=== PATIENT | female | born 1940 | race Caucasian/White ===

== ENCOUNTER 2016-12-05 05:18 | Inpatient (IN) | payer OTHER, MEDICARE ==
[~2016-12-05] VITALS: Ht 167.6 cm; Wt 76.7 kg
[~2016-12-05 05:18] MED LIST: ALIGN4 M1; AMLODIPINE BESY10 M1 PO; ASPIRIN EC81 M1 PO; BACTROBAN15 GM TOP; COZAAR100 M1 PO; METFORMIN HCL1000 M1 PO; SIMVASTATIN20 M2 PO; SOTALOL80 M1 PO; TRIAMTERENE-HC1 EAC3 PO; ULTRAM50 M1 PO; WARFARIN SODIUM5 M1 PO; XANAX0.5 M1 PO
--- NOTE | 2016-12-05 12:12 | Admission Core Measures ---
Admission Lab Results I reviewed the following labs: Laboratory Tests 12/05 730 Coagulation PT (9.4 - 12.5 SEC) 12.0 INR (0.90 - 1.19) 1.14 Admission Meds I reviewed the following Meds: Current Medications Sig/Ayesha Start time Last Medication Dose Stop Time Status Admin Acetaminophen 975 MG ONCE 12/05 0000 NR (Tylenol) 12/05 2358 Alprazolam 0.5 MG TID PRN 12/05 0815 AC (Xanax) 12/12 0914 Amlodipine Besylate 10 MG DAILY 12/05 1000 AC (Norvasc) Atorvastatin Calcium 10 MG 1700 12/05 1700 AC (Lipitor) Cefazolin Sodium 2,000 MG ONCE 12/05 0000 CAN (Kefzol-Ancef Inj) 12/05 235 Lactobacillus 1 CAP DAILY 12/05 1000 AC Acidophilus (Probiotic) Losartan Potassium 100 MG DAILY 12/05 1000 AC (Cozaar) Oxycodone HCl 10 MG ONCE 12/05 0000 AC (Roxicodone) 12/05 2358 Ropivacaine 500 ML ONCE ONE 12/05 0830 AC (NAROPIN) 12/07 1029 ON-Q Ball 1 BAG Sotalol HCl 160 MG BID 12/05 1000 AC (Betapace) Triamterene/HCTZ 1 CAP DAILY 12/05 1000 AC (Dyazide) Vancomycin HCl 1,000 MG ONCE 12/05 0000 NR Sodium Chloride 250 ML 12/05 2358 (Normal Saline 0.9%) Acute Coronary Syndrome Inclusion Criteria ACS Diagnosis No Inpatient Core Measures LDL Reminder: If No, please order W/I first 24hr of stay Congestive Heart Failure Inclusion Criteria CHF Diagnosis No Cerebrovascular accident Inclusion Criteria CVA/TIA Diagnosis No Inpatient Core Measures Bedside Swallow Eval Reminder: If BSE failed, place ST order Antithrombotic Reminder: Order Antithrombotic Medication by end of day 2 Antithrombotic Reminder: Document Reason Antithrombotic Not ordered by end of day 2 AFIB/Flutter Reminder: If Present, add to problem list AFIB/Flutter Reminder: Order Anticoag Medication for pts with AFIB/Flutter Atherosclerosis Reminder: If Present, add to problem list LDL Reminder: If No, please order W/I first 24hr of stay PT Order Reminder: If No, please order Venous thromboembolism Inpatient Core Measures VTE Risk Factors: Age > 40, Surgery No [facility] [place] VTE prophylaxis d/t No contraindications No VTE Pharm Prophylaxis d/t No contraindications Inclusion Criteria - Per Current guidelines, there needs to be overlap - treatment for the first 5 days of Warfarin therapy. - Parenteral Anticoagulation (IV or SC) needs to be - given along with Warfarin therapy. VTE Diagnosis No VTE Type NONE VTE Confirmed by (Test) NONE Problem List As ranked by this Provider includes Assessment & Plan 1. Unilateral primary osteoarthritis, left knee HOME MEDS Home Med List Alprazolam (Xanax) 0.5 MG TABLET 1 TAB PO TIDPRN ANXIETY (Reported) Amlodipine Besylate 10 MG TABLET 1 TAB PO DAILY HTN (Reported) Aspirin (Ecotrin*) 81 MG TABLET.DR 1 TAB PO DAILY PROPHO (Reported) Losartan (Cozaar) 100 MG TABLET 1 TAB PO DAILY HTN (Reported) Metformin HCl 1,000 MG TABLET 1 TAB PO BID DM II (Reported) Mupirocin Calcium (Bactroban) 2 % CREAM..G. 1 TERRI TOP BID PRE OP HX MRSA ( Reported) Simvastatin (Simvastatin*) 20 MG TABLET 1 TAB PO QPM CHOLESTEROL (Reported) Sotalol HCl (Sotalol) 80 MG TABLET 2 TAB PO BID A FIB (Reported) Triamterene/Hydrochlorothiazid (Triamterene-Hctz 37.5-25 MG Cp) 37.5 MG-25 MG CAPSULE 1 CAP PO DAILY HTN (Reported) Warfarin Sodium 5 MG TABLET 1 TAB PO DAILY A FIB (Reported)
[2016-12-05] MEDS ORDERED: MS CONTIN15 M2 PO (12:15)
[2016-12-05] MEDS ORDERED: PRILOSEC OTC20 M1 PO (12:15)
[2016-12-05] MEDS ORDERED: COLACE100 M1 PO (12:15)
[2016-12-05] MEDS ORDERED: MIRALAX17 G1 PO (12:15)
[2016-12-05] MEDS ORDERED: DILAUDID2 M1 PO (12:15)
[2016-12-05] MEDS ORDERED: COUMADIN5 M2 PO (12:15)
[2016-12-05] MEDS ORDERED: ASPIRIN EC325 M2 PO (12:15)
--- NOTE | 2016-12-05 12:20 | Patient Discharge Instructions ---
Discharge Instructions General Discharge Information You were seen/treated for: LEFT KNEE PAIN You had these procedures: LEFT TOTAL KNEE REPLACEMENT Watch for these problems: INCREASING PAIN DESPITE THE USE OF PAIN MEDICATION, REDNESS, WARMTH, SWELLING. DRAINAGE OF ANY TYPE FROM INCISION. INABILITY TO BEAR WEIGHT ON LEFT LEG. FEVER >101.5 DEGREES. Do not soak the wound: Yes No bath, but you may shower: Yes Special Instructions: WOUND CARE: KEEP WOUND CLEAN AND DRY. YOUR HOME CARE NURSE WILL CHANGE YOUR DRESSING ON THE SECOND DAY AFTER YOUR SURGERY. DAILY DRY DRESSING CHANGES RECOMMENDED AFTER THAT. NO OINTMENTS OF ANY TYPE ON INCISION. BLOOD THINNER: IN ADDITION TO DAILY COUMADIN, YOU WILL BE TAKING 325 MG OF ASPIRIN TWICE DAILY. THIS IS IMPORTANT IT HELPS PROTECT YOU FROM DEVELOPING A BLOOD CLOT WHILE WAITING FOR YOUR COUMADIN LEVEL TO BECOME THERAPEUTIC. YOU WILL BE TAKING THIS FOR 1 WEEK. PLEASE TAKE WITH FOOD. YOU HAVE ALSO BEEN GIVEN PRILOSEC TO HELP PROTECT YOUR STOMACH LINING WELL. BOWEL REGIMEN: PAIN MEDICATION CAN OFTEN CAUSE CONSTIPATION. IT IS VERY IMPORTANT THAT YOU TAKE A STOOL SOFTENER AND A LAXATIVE TO ENSURE REGULAR BOWEL MOVEMENTS WHILE ON PAIN MEDICATION. Diet Continue normal diet: Yes Recommended Diet: Heart Healthy Additional DIET Information: ADVANCE TOLERATED Activity Full Activity/No Limits: No Activity Self Limited: Yes Pounds, do NOT lift more than: 10 Additional ACTIVITY Info: WEIGHT BEAR TOLERATED Acute Coronary Syndrome Inclusion Criteria At DC or during hospital stay patient has or had the following: ACS DIAGNOSIS No Discharge Core Measures Meds if any: Prescribed or Continued at Discharge Meds if any: NOT Prescribed or Continued at Discharge Congestive Heart Failure Inclusion Criteria At DC or during hospital stay patient has or had the following: CHF DIAGNOSIS No Discharge Core Measures Meds if any: Prescribed or Continued at Discharge Meds if any: NOT Prescribed or Continued at Discharge Cerebrovascular accident Inclusion Criteria At DC or during hospital stay patient has or had the following: CVA/TIA Diagnosis No Discharge Core Measures Meds if any: Prescribed or Continued at Discharge Meds if any: NOT Prescribed or Continued at Discharge Venous thromboembolism Inclusion Criteria VTE Diagnosis No VTE Type NONE VTE Confirmed by (Test) NONE Discharge Core Measures - Per Current guidelines, there needs to be overlap - treatment for the first 5 days of Warfarin therapy. - If discharged on Warfarin prior to 5 days of - overlap therapy, the patient will need to be - assessed for post discharge needs including - *Post discharge parental anticoagulation - *Warfarin and/or parental anticoagulation education - *Follow up date to check INR post discharge At least 5 days overlap therapy as Inpatient No Meds if any: Prescribed or Continued at Discharge Note: Overlap Therapy is Warfarin and Anticoagulant Meds if any: NOT Prescribed or Continued at Discharge
--- NOTE | 2016-12-05 12:29 | Surgical Discharge Summary ---
Visit Information Visit Dates Admission Date: 12/05/16 Discharge Date: 12/08/16 History of Present Illness Chief Complaint: LEFT KNEE PAIN Medical History Isolation History: Standard Surgical History Pertinent Surgical History: non-contributory Review of Systems: SEE H&P Hospital Course Course Attending Physician: LUCHO THORNTON MD Primary Care Physician: DEBBY SILVA,[facility] Course: MAURISIO WAS ADMITTED TO THE HOSPITAL ON 12/05/2016 FOR AN ELECTIVE LEFT TOTAL KNEE REPLACEMENT. SHE TOELRATED THE PROCEDURE WELL. SHE WAS TRANSFERRED TO A GENERAL SURGICAL FLOOR. HER DIET WAS ADVANCED AND TOLERATED. HER VITAL SIGNS WERE STABLE AND WITHIN NORMAL LIMITS. SHE VOIDED SPONTANEOULSY. HER PAIN WAS WELL CONTROLLED WITH ORAL PAIN MEDICATIONS. SHE WAS EVALUATED AND TREATED BY PHYSICAL THERAPY. SHE WAS DEEMED APPROPRIATE FOR DISCHARGE. Her INR raced only to 1.5 on postop day #3 and she'll be continued on aspirin for the next few days, she will continue the Coumadin at 5 mg at her regular dose and have the INR checked early next week. She understands that she can stop the aspirin once the INR is 0.2 and 3 and then have regular INR checks. She was also noted to be mildly hyponatremic on postoperative day #3, sodium to 1:30, she states that she has been on a heart healthy diet, no salt all she is here which is not her usual regimen at home as well as taking a water pill every day here which she does not take every day at home, she usually skips days. I discussed with her that it is not a dangerous level although if he continued to drop she may experience confusion or generalized weakness and she should return to the ER with any concerns of this. I recommended that she had a little salt to her diet and skips a water pill for a day or 2 as well as restricting large amounts of free water. She understands and agrees with plan. Allergies: Coded Allergies: Sulfa (Sulfonamide Antibiotics) (?? 11/30/16) Disposition Summary Disposition Principal Diagnosis: LEFT KNEE UNILATERAL PRIMARY OSTEOARTHRITIS Additional Diagnosis: NONE Discharge Disposition: home health services Discharge Instructions General Discharge Information Code Status: Full Code Patient's Diet: HEART HEALTHY, ADVANCE TOLERATED Patient's Activity: WEIGHT BEAR TOLERATED ON LEFT LEG Follow-Up Instructions/Appts: PLEASE CALL TO CONFIRM FOLLOW UP APPOINTMENT WITH DR. THORNTON TO BE SEEN IN 6 WEEKS FROM DATE OF SURGERY. Medications at Discharge Discharge Medications: Stop taking the following medications: Warfarin Sodium (Warfarin Sodium) 5 MG TABLET ORAL DAILY Continue taking these medications: Alprazolam (Xanax) 0.5 MG TABLET 1 Tablet ORAL THREE TIMES A DAY NEEDED Amlodipine Besylate (Amlodipine Besylate) 10 MG TABLET 1 Tablet ORAL DAILY Aspirin (Ecotrin*) 81 MG TABLET.DR 1 Tablet ORAL DAILY Losartan (Cozaar) 100 MG TABLET 1 Tablet ORAL DAILY Metformin HCl (Metformin HCl) 1,000 MG TABLET 1 Tablet ORAL TWICE DAILY Simvastatin (Simvastatin*) 20 MG TABLET 1 Tablet ORAL Every night Sotalol HCl (Sotalol) 80 MG TABLET 2 Tablet ORAL TWICE DAILY Triamterene/Hydrochlorothiazid (Triamterene-Hctz 37.5-25 MG Cp) 37.5 MG-25 MG CAPSULE 1 Capsule ORAL DAILY Bifidobacterium Infantis (Align) 4 MG (1 BILLION CELL) CAPSULE Mupirocin Calcium (Bactroban) 2 % CREAM..G. 1 Application On the skin TWICE DAILY Instructions: apply to affected area(s) Start taking the following new medications: Aspirin (Ecotrin*) 325 MG TABLET.DR 1 Tablet ORAL TWICE DAILY Qty = 14 No Refills Warfarin Sodium (Coumadin) 5 MG TABLET 1 Tablet ORAL DAILY Qty = 30 No Refills Instructions: DOSE MAY CHANGE DAILY BASED ON INR, AWAIT INSTRUCTIONS PRIOR TO TAKING Docusate Sodium (Colace) 100 MG CAPSULE 1 Capsule ORAL TWICE DAILY Qty = 14 No Refills Instructions: DISCONTINUE USE IF YOU DEVELOP LOOSE STOOL OR DIARRHEA Polyethylene Glycol 3350 (Miralax) 17 GRAM POWD.PACK 1 Packet ORAL DAILY Qty = 7 No Refills Instructions: dissolve in water, DISCONTINUE USE IF YOU DEVELOP LOOSE STOOL OR DIARRHEA Morphine Sulfate (Ms Contin) 15 MG TABLET.ER 1 Tablet ORAL TWICE DAILY Qty = 6 No Refills Hydromorphone HCl (Dilaudid) 2 MG TABLET 1-2 Tablet ORAL EVERY 4-6 HOURS as needed for PAIN Qty = 36 No Refills Omeprazole Magnesium (Prilosec Otc) 20 MG TABLET.DR 1 Tablet ORAL DAILY Qty = 30 No Refills
--- NOTE | 2016-12-05 16:13 | Operative Report ---
Operative/Inv Procedure Report Surgery Date: 12/05/16 Name of Procedure: 1. Left total knee replacement 2. Right knee cortisone injection Pre-Operative Diagnosis: Bilateral primary knee DJD Post-Operative Diagnosis: Same Estimated Blood Loss: 50ml to 100ml Surgeon/Fraud Prevention Analyst: HILLARY SILVA,LUCHO Chacko Anesthesia: block Operative/Procedure Note Note: Description of Procedure: The patient was taken to the operating room and positively identified. After induction of spinal anesthesia and administration of appropriate pre-operative antibiotics, the patient was positioned supine on the operating room table and all bony prominences were well padded. The right knee was prepped sterilely and injected with a mixture of 2 mL of Depo -Medrol and 8 mL of half percent Marcaine. A Band-Aid was placed over the injection site. Attention was then turned to the left lower extremity. A well-padded pneumatic tourniquet was placed on the left upper thigh. After performing a surgical timeout, the left lower extremity was prepped and draped in the usual sterile fashion. After exsanguination with Esmarch the tourniquet was inflated to 250mm of mercury. A standard medial parapatellar approach was made to the knee. This was carried down through skin and subcutaneous tissue to the level of the fascia. Meticulous hemostasis was maintained with Bovie electrocautery. The extensor mechanism and patellar retinaculum were opened sharply and the patella was everted. The infrapatellar fat was resected in order to improve exposure. Osteophytes were trimmed from the patella and femoral condyles and the patella was re-everted and tucked laterally. A medial release was performed and the cruciate ligaments were resected. The tibia was then subluxed anteriorly. Utilizing the appropriate extra-medullary guide, the proximal tibia was trimmed perpendicular to the long axis of the tibial shaft. Attention was then turned to the femur. After opening the medullary canal, the distal femoral cut was made in 6 degrees of valgus utilizing the appropriate intra-medullary guide. The extension gap was checked and found to be appropriate. The femur was then sized and the remainder of the femoral cuts were made with a size 3 4-in-1 femoral cutting guide. The flexion gap was checked and found to be symmetric and appropriate. The knee was then trialed with a size 3 femoral component, a size 3 tibial component and a size 11 mm TS polyethylene insert. The patella was trimmed to accept an A 32 patella. This yielded excellent range of motion, stability and patellar tracking. All trial components were removed and the knee was copiously irrigated with sterile saline. All components were cemented into place with [place] Simplex cement. All the components were of the Correlix Triathlon knee system of the above stated sizes. The knee was again irrigated after cementation. The extensor mechanism and patellar retinaculum were repaired using interrupted #1 vicryl suture. The skin was re-approximated with 2-0 vicryl and closed with denise. A sterile dressing was applied, the tourniquet was deflated, the patient was awakened and taken to the recovery room in satisfactory condition.
[2016-12-05 16:30] VITALS: BP 128/70
--- NOTE | 2016-12-05 16:56 | PN- Orthopedic ---
Subjective Subjective: Patient reporting no acute post operative events. She feels that her pain is under control at the present moment. She denies chest pain, shortness of breath , and difficulty breathing. She denies nausea and vomitting. She has yet to eat. She has yet to ambulate. She has a kilpatrick catheter in place. Objective Vital Signs and I&Os Vital Signs Date Time Temp Pulse Resp B/P Pulse O2 O2 Flow FiO2 Ox Delivery Rate 12/05 1630 98.1 89 18 128/70 100 Room Air Physical Exam: General: Alert and oriented x3, no acute distress Cardiac: Irregular, s1s2 Pulm: CTA bilaterally Abdomen: Non-tender, non-distended Extremities: Moves all extremities, distal sensation intact. Motor 5/5 in plantar and dorsi flexion. Skin warm and well perfused. Bilateral calves soft and nontender. Surgical site: Left knee. Dressing dry and intact. OnQ in place with no evidence of leakage/hematoma. No drain. Assessment/Plan Assessment/Plan This is a 76 year old female, POD 0, s/p left tkr. PMH significant for: Afib, htn, dm, hld, anxiety. -Insulin eating patient sliding scale for now, restart metformin tomorrow pending creatinine -Abx ppx: Ancef 2 grams for two additional doses -Pain regimen: Dilaudid po, morphine iv breakthrough, toradol okay -Activity: OOB, wbat, rolling walker for support -Bowel regimen: Colace bid, miralax daily -Diet: Heart healthy, advance as tolerated -DVT ppx: Restart coumadin, 7.5 today, asa bridge for one week. Target INR 2- 2.5 -Follow up am labs -Plan for d/c to home in 2-3 nights -Will d/w Dr. Catalan Core Measures/Miscellaneous Venous Thromboembolism VTE Risk Factors: Age > 40, Surgery VTE Contraindications: No Contraindications VTE Diagnosis: No VTE Type: NONE VTE Confirmed by (Test): NONE Beta Jluia Is Beta Julia a Home Med? No Antibiotics Is Patient on Antibiotics? Yes If Yes: prophylaxis
[2016-12-05 17:57] VITALS: BP 130/78
[2016-12-05 20:09] VITALS: BP 156/82
--- NOTE | 2016-12-05 22:41 | NUR ---
LATE ENTRY: PT ARRIVED TO FLOOR AT 1546 FROM PACU, S/P L TOTAL KNEE VS 98.1 89 18 128/70 100% ROOM AIR. AMBULATED BRIEFLY WITH PT. +CMS A&O, LUNGS CLEAR, SKIN INTACT-MASOUD WRAP TO L KNEE, CDI, INDEPENDENT WITH RW AT BASELINE. CONTACT PREC-MRSA, FALL PRECAUTIONS. HUYNH IN PLACE, DRAINING CLEAR YELLOW URINE. IV #24 TO LH WITH D5 1/2 NS @ 75 ML/HR RUNNING. ON Q IN PLACE TO L ADDUCTOR CANAL, 5 CM, 10ML/HR, TO BE REMOVED BY NURSING ON 12/07/16. ONE ICE KELSEY IN ROOM, OTHER IN FREEZER. ALPS ARE ON, TEDS IN ROOM FOR DISCHARGE. ORIENTED TO ROOM & CALL ANGELA. CONTINUE TO MONITOR.
[2016-12-06 01:18] VITALS: BP 150/72
[2016-12-06 05:09] VITALS: BP 138/80
[2016-12-06 08:19] LABS: ABSOLUTE BASOPHIL COUNT 0 /CUMM (0.0-0.2); ABSOLUTE EOSINOPHIL COUNT 0.1 /CUMM (0.0-0.7); ABSOLUTE GRANULOCYTE CT 5.4 /CUMM (1.4-6.5); ABSOLUTE MONOCYTE COUNT 0.8 /CUMM (0.10-0.60); BASOPHIL % 0.1 % (0.0-2.0); EOSINOPHIL % 1.2 % (0-5); GRANULOCYTE % 73.6 % (42.2-75.2); MEAN CORPUSCULAR HGB 28.3 PG (27.0-31.0); MEAN CORPUSCULAR HGB CONC 32.9 G/DL (33.0-37.0); MEAN CORPUSCULAR VOLUME 86.1 FL (81.0-99.0); MEAN PLATELET VOLUME 8.8 FL (7.4-10.4); PLATELET COUNT 191 /CUMM (130-400); RBC DISTRIBUTION WIDTH 14.9 % (11.5-14.5); RED BLOOD CELL CT 3.95 /CUMM (4.20-5.40); WHITE BLOOD CELL COUNT 7.3 /CUMM (4.8-10.8)
[2016-12-06 08:23] LABS: PT 12.8 SEC (9.4-12.5)
[2016-12-06 10:33] VITALS: BP 163/78
--- NOTE | 2016-12-06 10:53 | PN- Orthopedic ---
Subjective Subjective: Postop day 1 status post left total knee arthroplasty. Complains of moderate pain, burning sensation anterior knee, pain medication only helping mildly. She is better today than she was last night. She has been out of bed and ambulatory with physical therapy and did well. She has no other complaints. No chest pain no nausea no vomiting no shortness of breath. Objective Vital Signs and I&Os Vital Signs Date Time Temp Pulse Resp B/P Pulse O2 O2 Flow FiO2 Ox Delivery Rate 12/06 1033 98.9 98 20 163/78 98 Room Air 12/06 0928 99.7 91 18 138/80 / 0928 99.7 91 18 138/80 / 0617 99.7 / 0509 99.1 91 18 138/80 96 Room Air 12/06 0118 99.4 85 18 150/72 96 Room Air 12/05 2009 98.3 86 18 156/82 99 / 1757 98.8 91 19 130/78 97 Room Air 12/05 1630 98.1 89 18 128/70 100 Room Air Intake & Output 12/06 1600 12/06 0800 12/06 0000 12/05 1600 12/05 0800 / 0000 Intake Total 670 2350 Output Total 550 1100 2024 Balance -550 -430 325 Intake, IV 670 1750 Intake, Oral 600 Output, Other 50 Output, Urine 550 1100 1974 Patient 169 lb Weight Physical Exam: Well-developed well-nourished no apparent distress. HEENT: Atraumatic, extraocular motion intact Neck: Supple, no lymphadenopathy Respiratory: No respiratory distress Extremities: No edema LEFT lower extremity dressing in place, Dressing in place Range of motion is 0-75. Compression wrap in place. ALPS in place Neurovascularly intact distally Bilateral calves are supple, nontender. Neuro: Alert and oriented x3 Psych: Mood affect normal, normal memory normal judgment. Skin: Warm and dry, no rash on exposed skin Results Last 48 Hours of Labs: Laboratory Tests 12/06 12/05 0700 0731 Chemistry Sodium (137 - 145 mmol/L) 134 L Potassium (3.5 - 5.1 mmol/L) 4.3 Chloride (98 - 107 mmol/L) 99 Carbon Dioxide (22 - 30 mmol/L) 27 Anion Gap (5 - 16) 7 BUN (7 - 17 mg/dL) 13 Creatinine (0.5 - 1.0 mg/dL) 0.7 Estimated GFR (>60 ml/min) > 60 BUN/Creatinine Ratio (7 - 25 %) 18.6 Coagulation PT (9.4 - 12.5 SEC) 12.8 H 12.0 INR (0.90 - 1.19) 1.22 H 1.14 Hematology CBC w Diff NO MAN DIFF REQ WBC (4.8 - 10.8 /CUMM) 7.3 RBC (4.20 - 5.40 /CUMM) 3.95 L Hgb (12.0 - 16.0 G/DL) 11.2 L Hct (37 - 47 %) 34.0 L MCV (81.0 - 99.0 FL) 86.1 MCH (27.0 - 31.0 PG) 28.3 RDW (11.5 - 14.5 %) 14.9 H Plt Count (130 - 400 /CUMM) 191 MPV (7.4 - 10.4 FL) 8.8 Gran % (42.2 - 75.2 %) 73.6 Lymphocytes % (20.5 - 51.1 %) 13.6 L Monocytes % (1.7 - 9.3 %) 11.5 H Eosinophils % (0 - 5 %) 1.2 Basophils % (0.0 - 2.0 %) 0.1 Absolute Granulocytes (1.4 - 6.5 /CUMM) 5.4 Absolute Lymphocytes (1.2 - 3.4 /CUMM) 1.0 L Absolute Monocytes (0.10 - 0.60 /CUMM) 0.8 H Absolute Eosinophils (0.0 - 0.7 /CUMM) 0.1 Absolute Basophils (0.0 - 0.2 /CUMM) 0 PUBS MCHC (33.0 - 37.0 G/DL) 32.9 L Assessment/Plan Assessment/Plan Postop day #1 status post left total knee arthroplasty. -And MS Contin due to increased postoperative pain -Continue on Q -Aspirin for DVT prophylaxis until INR therapeutic, continue Coumadin 5 mg tonight as patient has a history of A. fib -GI prophylaxis -Out of bed with physical therapy -DC Tate -Plan for discharge home tomorrow Core Measures/Miscellaneous Venous Thromboembolism VTE Risk Factors: Age > 40, Surgery VTE Contraindications: No Contraindications VTE Diagnosis: No VTE Type: NONE VTE Confirmed by (Test): NONE Beta Julia Is Beta Julia a Home Med? No Antibiotics Is Patient on Antibiotics? Yes If Yes: prophylaxis
[2016-12-06 14:18] VITALS: BP 144/66
[2016-12-06 21:47] VITALS: BP 144/70
[2016-12-07 06:49] VITALS: BP 100/72
--- NOTE | 2016-12-07 08:30 | PN- Orthopedic ---
Subjective Subjective: pod#2 s/p left tka pain control improved no complaints this morning ambulating with pt no bm Objective Vital Signs and I&Os Vital Signs Date Time Temp Pulse Resp B/P Pulse O2 O2 Flow FiO2 Ox Delivery Rate 12/07 0649 98.9 80 18 100/72 95 Room Air / 2147 98.8 90 20 144/70 98 / 1739 99.9 / 1551 99.4 / 1418 99.6 84 20 144/66 97 Room Air / 1033 98.9 98 20 163/78 98 Room Air 12/06 0928 99.7 91 18 138/80 12/06 0928 99.7 91 18 138/80 Intake & Output 12/07 1600 12/07 0800 12/07 0000 12/06 1600 12/06 0800 12/06 0000 Intake Total 840 565 264 443 0467 Output Total 1550 1100 202 Balance 840 565 -750 -430 325 Intake, IV 600 217 901 3442 Intake, Oral 240 340 800 600 Output, Other 50 Output, Urine 1550 1100 1975 Patient 169 lb Weight Physical Exam: cv: rrr lungs: clear abd: soft, +bs ext: drsg changed, wound c/d/i no calf tenderness bilat distal cms intact Assessment/Plan Assessment/Plan ortho stable plan titrate coumadin for inr 2-3 oob with PT/stairs bowel regime home d/c in am Core Measures/Miscellaneous Venous Thromboembolism VTE Risk Factors: Age > 40, Surgery VTE Contraindications: No Contraindications VTE Diagnosis: No VTE Type: NONE VTE Confirmed by (Test): NONE Beta Julia Is Beta Julia a Home Med? No Antibiotics Is Patient on Antibiotics? Yes If Yes: prophylaxis
[2016-12-07 08:38] LABS: PT 16.1 SEC (9.4-12.5)
[2016-12-07 16:08] VITALS: BP 130/59
[2016-12-07 22:00] VITALS: BP 151/62
[2016-12-08 07:09] VITALS: BP 152/77
[2016-12-08 08:09] LABS: ABSOLUTE BASOPHIL COUNT 0 /CUMM (0.0-0.2); ABSOLUTE EOSINOPHIL COUNT 0.1 /CUMM (0.0-0.7); ABSOLUTE GRANULOCYTE CT 6.3 /CUMM (1.4-6.5); ABSOLUTE LYMPH COUNT 1.2 /CUMM (1.2-3.4); ABSOLUTE MONOCYTE COUNT 0.9 /CUMM (0.10-0.60); BASOPHIL % 0.1 % (0.0-2.0); EOSINOPHIL % 1.4 % (0-5); GRANULOCYTE % 73.8 % (42.2-75.2); HEMATOCRIT 30.7 % (37-47); MEAN CORPUSCULAR HGB 28.6 PG (27.0-31.0); MEAN CORPUSCULAR HGB CONC 33.5 G/DL (33.0-37.0); MEAN CORPUSCULAR VOLUME 85.3 FL (81.0-99.0); MEAN PLATELET VOLUME 8.8 FL (7.4-10.4); PLATELET COUNT 199 /CUMM (130-400); RBC DISTRIBUTION WIDTH 15.1 % (11.5-14.5); WHITE BLOOD CELL COUNT 8.5 /CUMM (4.8-10.8)
--- NOTE | 2016-12-08 09:43 | PN- Orthopedic ---
Subjective Subjective: Patient feels well, she is comfortable, pain control, she did well physical therapy, mild left knee pain as expected which is controlled with pain medication. No fever no flulike illness infusion. Objective Vital Signs and I&Os Vital Signs Date Time Temp Pulse Resp B/P Pulse O2 O2 Flow FiO2 Ox Delivery Rate 12/08 708 99.5 86 20 152/77 93 Room Air 12/07 2200 99.8 90 18 151/62 97 Room Air 12/07 1608 98.6 79 18 130/59 94 Room Air Intake & Output 12/08 0000 12/07 1600 12/07 0000 Intake Total 500 115 840 565 Output Total Balance 500 115 840 565 Intake, IV 115 600 225 Intake, Oral 500 240 340 Number 0 Bowel Movements Physical Exam: Well-developed well-nourished no apparent distress. HEENT: Atraumatic, extraocular motion intact Neck: Supple, no lymphadenopathy Respiratory: No respiratory distress Extremities: No edema LEFT lower extremity dressing in place, Incision line is clean dry and intact with minimal bloody drainage. No signs of infection. Mild joint effusion Very small serous filled blister noted laterally at the joint line Range of motion is 0-80. Neurovascularly intact distally Bilateral calves are supple, nontender. Neuro: Alert and oriented x3 Psych: Mood affect normal, normal memory normal judgment. Skin: Warm and dry, no rash on exposed skin Results Last 48 Hours of Labs: Laboratory Tests 12/08 12/08 12/07 0720 0710 0620 Chemistry Sodium (137 - 145 mmol/L) 130 L Potassium (3.5 - 5.1 mmol/L) 4.7 Chloride (98 - 107 mmol/L) 95 L Carbon Dioxide (22 - 30 mmol/L) 27 Anion Gap (5 - 16) 8 BUN (7 - 17 mg/dL) 15 Creatinine (0.5 - 1.0 mg/dL) 0.8 Estimated GFR (>60 ml/min) > 60 BUN/Creatinine Ratio (7 - 25 %) 18.8 Coagulation PT (9.4 - 12.5 SEC) 16.0 H 16.1 H INR (0.90 - 1.19) 1.53 H 1.54 H Hematology CBC w Diff NO MAN DIFF REQ WBC (4.8 - 10.8 /CUMM) 8.5 RBC (4.20 - 5.40 /CUMM) 3.60 L Hgb (12.0 - 16.0 G/DL) 10.3 L Hct (37 - 47 %) 30.7 L MCV (81.0 - 99.0 FL) 85.3 MCH (27.0 - 31.0 PG) 28.6 RDW (11.5 - 14.5 %) 15.1 H Plt Count (130 - 400 /CUMM) 199 MPV (7.4 - 10.4 FL) 8.8 Gran % (42.2 - 75.2 %) 73.8 Lymphocytes % (20.5 - 51.1 %) 14.2 L Monocytes % (1.7 - 9.3 %) 10.5 H Eosinophils % (0 - 5 %) 1.4 Basophils % (0.0 - 2.0 %) 0.1 Absolute Granulocytes (1.4 - 6.5 /CUMM) 6.3 Absolute Lymphocytes (1.2 - 3.4 /CUMM) 1.2 Absolute Monocytes (0.10 - 0.60 /CUMM) 0.9 H Absolute Eosinophils (0.0 - 0.7 /CUMM) 0.1 Absolute Basophils (0.0 - 0.2 /CUMM) 0 PUBS MCHC (33.0 - 37.0 G/DL) 33.5 Assessment/Plan Assessment/Plan Postop day #3 status post left total knee arthroplasty. -Stable for discharge home today -Subtherapeutic INR, discussed with patient, continue aspirin for the next few days and her usual dose of Coumadin 5 mg and have INR checked early next week. -Hyponatremia, discussed with patient, restrict free water, skip water pill and add a little salt to her diet which is which she usually does at home, here she has been on heart healthy diet and hyponatremia is likely diet related, she has no symptoms of hyponatremia at this time. -Follow up in 5 weeks as outpatient with orthopedist Core Measures/Miscellaneous Venous Thromboembolism VTE Risk Factors: Age > 40, Surgery VTE Contraindications: No Contraindications VTE Diagnosis: No VTE Type: NONE VTE Confirmed by (Test): NONE Beta Julia Is Beta Julia a Home Med? No Antibiotics Is Patient on Antibiotics? Yes If Yes: prophylaxis
[2016-12-08 10:10] VITALS: BP 141/69
== END 2016-12-08 11:38 | disposition home health service (06) | DRG 470 ==
LOC: CANRESERV → ENRESERVTM → ENRESERVDT → SDA 05:18 → ENPENDDIS 05:18 → 2NB 05:18
PROVIDERS: Nurse Practitioner; Physician Assistant Surgical; ADMIT Orthopaedic Surgery
PROC: 0SRD0J9 Replacement of Left Knee Joint with Synthetic Substitute, Cemented, Open Approach (ICD-10-PCS; principal; 2016-12-05)
DX: M17.12 Unilateral primary osteoarthritis, left knee (principal); G62.9 Polyneuropathy, unspecified; E11.9 Type 2 diabetes mellitus without complications; I48.0 Paroxysmal atrial fibrillation; I10 Essential (primary) hypertension; E78.5 Hyperlipidemia, unspecified; F41.9 Anxiety disorder, unspecified
CPT/HCPCS: 1NP; 36415; 82436; 87086; 88305; 97110-GO; 97116-GO; 97161-GP; 97530-GO; C1713; J0690; J1815; J1885; J2405; J2550; J2795; J3370; J3490; J7040; J7042